=== PATIENT | male | born 1980 | race Caucasian/White ===

== ENCOUNTER 2016-03-28 16:36 | Inpatient (IN) | payer SELFPAY ==
[~2016-03-28] VITALS: Ht 177.8 cm; Wt 89.3 kg
[2016-03-28 16:38] VITALS: BP 164/71; PULSE 141; RESP 22; TEMP 98.8; TEMP 99.8; O2SAT 99
[2016-03-28] MEDS ORDERED: NALOXONE HCL 2 MG/2 ML VIAL IV PUSH ONE (16:45)
[2016-03-28] MEDS ORDERED: SODIUM CHLOR 0.9% 1000 ML INJ 1,000 ML IV ONE (17:00)
[2016-03-28] MEDS ORDERED: CLINDAMYCIN INJ 600 MG in SODIUM CHLORIDE 0.9% INJ 100 ML IV ONE (17:00)
[2016-03-28] MEDS ORDERED: IOHEXOL 350 MG/ML 10 ML VIAL (for RAD DIAG) IV ONE (17:34)
[2016-03-28 18:00] VITALS: BP 119/55; PULSE 82; RESP 16; O2SAT 99
--- NOTE | 2016-03-28 18:14 | RADRPT ---
EXAM DATE/TIME: 03/28/2016 17:17 [place] COMPARISON: No previous studies available for comparison. INDICATIONS : Left arm swelling and pain. IV CONTRAST: 66 cc Omnipaque 350 (iohexol) IV RADIATION DOSE: 11.61 CTDIvol (mGy) MEDICAL HISTORY : None SURGICAL HISTORY : None. ENCOUNTER: Initial ACUITY: 1 day PAIN SCALE: 5/10 LOCATION: Right arm TECHNIQUE: Volumetric scanning of the humerus was performed. Using automated exposure control and adjustment of the mA and/or kV according to patient size, radiation dose was kept as low as reasonably achievable to obtain optimal diagnostic quality images. FINDINGS: There is a loculated fluid collection along the inner aspect of the arm adjacent to the brachial becka ry. This demonstrates a mild rim enhancement and extends over a length of about 5.5 cm and transverse diameter of about 2 cm. Finding is characteristic of an abscess with surrounding cellulitis and skin thickening and edema. No associated bony abnormality. CONCLUSION: 1. Complex, mildly rim enhancing fluid collection along the inner aspect of the arm as above between the biceps and triceps muscles adjacent to the brachial artery most characteristic of an early absces s with surrounding cellulitis. No evidence for osteomyelitis. Ace Pozo MD on March 28, 2016 at 18:07 Board Certified Radiologist. This report was verified electronically.
[2016-03-28] MEDS ORDERED: Vancomycin Consult Pharmacy 1 EA OTHER SCH (18:45)
[2016-03-28] MEDS ORDERED: ACETAMINOPHEN 325 MG TAB PO PRN (18:45)
--- NOTE | 2016-03-28 18:52 | PD ---
HPI Chief Complaint: OD/ Ingestion Time Seen by Provider: 16:40 Travel History International Travel<30 days: No Contact w/Intl Traveler<30days: No Traveled to known affect area: No History of Present Illness HPI Patient was brought in as emergent rushed back from triage as unresponsive adult male with unknown identity. Patient was heroin overdose. I had seen this patient earlier this morning for right arm cellulitis/abscess. He left the ER AMA then because he did not want any further treatment and preferred to go to another emergency room. Patient was not breathing and was being bagged by the drain technician. Patient did have a pulse. [facility] Past Medical History Narrative Medical List of his past medical history as reviewed from the nursing note. Anxiety: Yes Depression: Yes Past Surgical History Surgical History: No Previous Surgery Social History Alcohol Use: Yes (OCCASIONAL) Tobacco Use: Yes (1/2 PPD) Substance Use: Yes (IV DRUG USE) Allergies-Medications (Allergen,Severity, Reaction): Coded Allergies: No Known Allergies (Unverified , 03/28/16) Comments No known drug allergies. Reported Meds & Prescriptions Reported Meds & Active Scripts Active No Active Prescriptions or Reported Medications Narrative Medication List of his home medications reviewed from the nursing note. Review of Systems Except as stated in HPI: all other systems reviewed are Neg Physical Exam Narrative GENERAL: Unresponsive, no spontaneous respirations, cyanotic SKIN: Warm and dry. Cyanotic HEAD: Atraumatic. Normocephalic. EYES: Pupils equal and round. No scleral icterus. No injection or drainage. ENT: No nasal bleeding or discharge. Mucous membranes pink and moist. NECK: Trachea midline. No JVD. CARDIOVASCULAR: Regular rate and rhythm. No murmur appreciated. RESPIRATORY: No spontaneous respirations. Patient is getting bagged by BVM GASTROINTESTINAL: Abdomen soft, non-tender, nondistended. Hepatic and splenic margins not palpable. MUSCULOSKELETAL: No obvious deformities. No clubbing. No cyanosis. No edema. NEUROLOGICAL: GCS of 3 PSYCHIATRIC: Unable to assess Data Data Last Documented VS Vital Signs Date Time Temp Pulse Resp B/P Pulse Ox O2 Delivery O2 Flow Rate FiO2 03/28/16 18:00 82 16 119/55 99 Room Air 03/28/16 16:38 99.8 Orders Naloxone Inj (Narcan Inj) (03/28/16 16:45) Clindamycin Inj (Cleocin Inj) (03/28/16 17:00) Lactic Acid (03/28/16 16:50) Blood Culture (03/28/16 16:50) Sodium Chlor 0.9% 1000 Ml Inj (Ns 1000 M (03/28/16 17:00) Ct Humerus W Iv Contrast (03/28/16 ) Iohexol 350 Inj (Omnipaque 350 Inj) (03/28/16 17:34) Admit Order (Ed Use Only) (03/28/16 18:39) Consult General Surgery (03/28/16 ) Diet Regular Basic (03/28/16 Dinner) Vital Signs (Adult) KIRK.Q4H (03/28/16 18:36) Complete Blood Count With Diff (03/29/16 06:00) Vancomycin Consult Pharmacy (Vancomycin (03/28/16 18:45) Labs Laboratory Tests Test 03/28/16 17:00 Lactic Acid Level 2.3 mmol/L MDM Medical Decision Making Medical Screen Exam Complete: Yes Emergency Medical Condition: Yes Medical Record Reviewed: Yes Differential Diagnosis Respiratory arrest, heroine overdose, sepsis Narrative Course 6:45 PM after I inserted the EJ 4 mg of IV Narcan was pushed. Patient immediately opened his eyes and started to breathe. He got agitated and started asking for his girlfriend. Since then he has remained very cooperative. His girlfriend is here next to him. I initially gave him IV clindamycin which he had not received during his last visit in the morning. He did get 1 Bactrim pill in the morning that was given in the emergency room. Since a CBC and BMP was already done I ordered lactic acid and blood culture. Lactic acid is elevated. His temperature upon arrival was 99.9. I've given him a liter of IV fluid bolus. I ordered a CT scan of his arm with IV contrast to get a better definition of the abscess. It is deep in the muscle bed adjacent to the brachial artery. I'm uncomfortable given the location and the depth to do an I&D. I spoke with from general surgery who will consult on the patient tomorrow. He wanted the patient to be admitted on IV antibiotics. I spoke with the hospitalist was accepted the case. Patient is comfortable with that plan and says he will stay. I've ordered IV vancomycin as well. Patient has history of MRSA. Patient happens to be very apologetic of his behavior earlier this morning. Critical Care Narrative Aggregate critical care time was 30 minutes. Time to perform other separately billable procedures was not included in the critical care time. My time did not include minutes spent treating any other patients simultaneously or on activities that did not directly contribute to the patient's treatment. The services I provided to this patient were to treat and/or prevent clinically significant deterioration that could result in: Respiratory arrest, heroin overdose, sepsis I provided critical care services requiring my management, as noted below: Chart data review, documentation time, medication orders and management, vital sign assessments/reviewing monitor data, ordering and reviewing lab tests, ordering and interpreting/reviewing x-rays and diagnostic studies, care of the patient and discussion of the patient with the admitting physicians. Procedures Procedure Narrative Left EJ line: Patient was a difficult IV access. He needed IV emergently to get Narcan. 20-gauge Angiocath was inserted and access was obtained within first attempt. 4 mg of Narcan was injected. Patient woke up immediately and tolerated the procedure well. EKG Prior to Arrival: No Physician Communication Physician Communication Dr. Patterson Diagnosis Primary Impression: Respiratory arrest Additional Impressions: Heroin overdose Qualified Code: T40.1X1A - Heroin overdose, accidental or unintentional, initial encounter Sepsis Qualified Code: A41.9 - Sepsis, due to unspecified organism Abscess Admitting Information Admitting Physician Requests: Admit Scripts No Active Prescriptions or Reported Meds Zamzam Dudley MD Mar 28, 2016 18:52
--- NOTE | 2016-03-28 19:07 | HHI.HP ---
HPI [facility] Primary Care Physician No Primary Care Physician Admission Diagnosis arm abscess, IV drug abuser Diagnoses: (1) Sepsis Diagnosis: Principal (2) Abscess Diagnosis: Principal (3) IVDU (intravenous drug user) Diagnosis: Principal (4) Heroin overdose Diagnosis: Principal (5) Tobacco abuse Diagnosis: Principal Travel History International Travel<30 Days: No Contact w/Intl Traveler <30 Da: No Traveled to Known Affected Are: No History of Present Illness Real Name: Jasbir Rios 78 ([id number]) This is a 35-year-old male w/ a PMH of IVDU, Bipolar Disorder, Depression and Tobacco Abuse who was brought to the ER as a Nelson Lawson following Heroin Overdose. Previously admitted earlier today for RUE Abscess, however he left AMA, returns now following Heroin OD, s/p Narcan 1mg upon arrival to ER. Currently awake, alert, oriented x4 and pleasant. Labs from previous visit w/ WBC 15.1, Chemistry essentially unremarkable. Currently, Lactic Acid 2.3. S/p Vanc/Clinda in ER. Dr. Patterson consulted by ER physician for eval of RUE Abscess, plan is to continue w/ IV Abx and monitor for possible surgical intervention. Review of Systems Other ROS: 14 point review of systems otherwise negative. Past Family Social History Past Medical History PMH: IVDU, Bipolar Disorder, Depression and Tobacco Abuse Past Surgical History PAST SURGICAL HISTORY: Right Forearm Abscess, Appendectomy Allergies: Coded Allergies: No Known Allergies (Unverified , 03/28/16) Family History PAST FAMILY HISTORY: Reviewed. No h/o DM or CAD Social History PAST SOCIAL HISTORY: Negative for alcohol. Smokes 1ppd. Positive for IVDU w/ Heroin, Xanax, Fentanyl Physical Exam Vital Signs Vital Signs Date Time Temp Pulse Resp B/P Pulse Ox O2 Delivery O2 Flow Rate FiO2 03/28/16 18:00 82 16 119/55 99 Room Air 03/28/16 16:38 99.8 141 22 164/71 99 Physical Exam PE: GENERAL: Pleasant middle-aged white male in no acute distress. HEENT: PERRLA, EOMI. No scleral icterus or conjunctival pallor. No lid lag or facial droop. CARDIOVASCULAR: Regular rate and rhythm. No obvious murmurs to auscultation. No chest tenderness to palpation. RESPIRATORY: No obvious rhonchi or wheezing. Clear to auscultation. Breath sounds equal bilaterally. GASTROINTESTINAL: Abdomen soft, non-tender, nondistended. BS normal. MUSCULOSKELETAL: RUE w/ erythema/edema and induration. Pulses intact bilaterally. NEUROLOGICAL: Awake, alert and oriented x4. No focal neurologic deficits. Moving both upper and lower extremities spontaneously. Laboratory Laboratory Tests Test 03/28/16 17:00 Lactic Acid Level 2.3 Date/Time Procedure Status Source Growth 03/28/16 17:00 Aerobic Blood Culture Received Blood Peripheral Pending 03/28/16 17:00 Anaerobic Blood Culture Received Blood Peripheral Pending Assessment and Plan Problem List: (1) Sepsis ICD Code: A41.9 Status: Acute (2) Abscess ICD Code: L02.91 Status: Acute (3) IVDU (intravenous drug user) ICD Code: F19.90 Status: Acute (4) Heroin overdose ICD Code: T40.1X1A Status: Acute (5) Tobacco abuse ICD Code: Z72.0 Status: Acute Assessment and Plan A/P: 1. Sepsis: WBC 15, Temp 99.8 rectal, HR 141, Source-RUE Abscess. Blood Cultures drawn on previous admit 03/28/16, will follow up cultures. S/p Vanc/ Clinda in ER. Continue w/ IV Abx. 2. Abscess: RUE Abscess, s/p eval by Dr. Patterson, plan is to continue w/ IV Abx and monitor for possible surgical intervention. 3. IVDU: h/o IVDU w/ Heroin, Xanax, Fentanyl. Brought to ER w/ Heroin OD, s/ p Narcan. Currently awake, alert, oriented x4. Ativan prn for withdrawal. 4. Heroin OD: As above, will monitor, Ativan prn. 5. Tobacco Abuse: Counselled. Ativan prn. 6. DVT Prophylaxis: SCD/Teds. 7. Social work for d/c planning as needed. 8. Case discussed w/ ER physician at length. Physician Certification 2 Midnight Certification Type: Admission for Inpatient Services Order for Inpatient Services The services are ordered in accordance with Medicare regulations or non- Medicare payer requirements, as applicable. In the case of services not specified as inpatient-only, they are appropriately provided as inpatient services in accordance with the 2-midnight benchmark. Estimated LOS (days): 2 days is the estimated time the patient will need to remain in the hospital, assuming treatment plan goals are met and no additional complications. Post-Hospital Plan: Not yet determined Problem Qualifiers (1) Sepsis: Qualified Code: A41.9 - Sepsis, due to unspecified organism (2) Heroin overdose: Qualified Code: T40.1X1A - Heroin overdose, accidental or unintentional, initial encounter Racheal Henderson MD Mar 28, 2016 19:07
[2016-03-28] MEDS ORDERED: BISACODYL 10 MG SUPP PR PRN (19:15)
[2016-03-28] MEDS ORDERED: ONDANSETRON HCL 4 MG/2 ML VIAL IVP PRN (19:15)
[2016-03-28] MEDS ORDERED: SODIUM CHLORIDE 0.9% FLUSH 5 ML FLUSH FLUSH PRN (19:15)
[2016-03-28] MEDS ORDERED: VANCOMYCIN 1,500 MG/NS 500 ML IV ONE ×2 (20:00)
--- NOTE | 2016-03-28 20:00 | PD.CAR.PN ---
CVT Progress Note Subjective/Hospital Course: Right arm abscess ID tomorrow in OR J Objective: Vital Signs Date Time Temp Pulse Resp B/P Pulse Ox O2 Delivery O2 Flow Rate FiO2 03/28/16 18:00 82 16 119/55 99 Room Air 03/28/16 16:38 99.8 141 22 164/71 99 Labs: Laboratory Tests Test 03/28/16 17:00 Lactic Acid Level 2.3 mmol/L (0.4-2.0) Gin Patterson MD Mar 28, 2016 20:00
[2016-03-28] MEDS: SODIUM CHLOR 0.9% 1000 ML INJ 1,000 ML IV SCH (20:08)
[2016-03-28] MEDS: SODIUM CHLORIDE 0.9% FLUSH 5 ML FLUSH FLUSH SCH (20:08)
[2016-03-28 20:11] VITALS: BP 115/61; PULSE 76; RESP 16; O2SAT 99
[2016-03-28] MEDS: ACETAMINOPHEN 325 MG TAB PO PRN (21:35)
[2016-03-28] MEDS: LORazepam 2 MG/ML VIAL IV PUSH PRN (21:36)
[2016-03-28 22:30] VITALS: BP 120/66; PULSE 68; RESP 16; TEMP 99; O2SAT 97
[2016-03-28] MEDS ORDERED: NALOXONE HCL 0.4 MG/ML AMP ONE (22:54)
--- NOTE | 2016-03-28 23:25 | HHI.PR ---
Addendum to Inpatient Note Addendum Reason: Additional Documentation Additional Information Patient was admitted tonight for IV drug dose. Fany Was called at 1045. Patient was found on the bathroom floor with a shoelace tying tied around his right arm and a needle on the floor. Patient was placed back in bed and was given 1 dose of Narcan. After 1 dose of Narcan patient woke up and stated he was feeling withdrawals and he had Dilaudid in his pants pocket soupy shot up the dose. Assess patient at bedside, he is A&O 3, and states he is very remorseful. Discussed plan with Dr. Henderson. Plan: at this time patient would benefit from a sitter, and neuro checks every 4 hours 4. Lucy Sanabria Mar 28, 2016 23:25
[2016-03-29] VITALS: BP 126/52; PULSE 76; RESP 18; TEMP 98.9; O2SAT 97
[2016-03-29] MEDS: LORazepam 2 MG/ML VIAL IV PUSH PRN ×3 (03:00→21:45)
[2016-03-29] MEDS: ACETAMINOPHEN 325 MG TAB PO PRN ×2 (03:00→11:18)
[2016-03-29 04:00] VITALS: BP 111/58; PULSE 67; RESP 18; TEMP 99.1; O2SAT 99
[2016-03-29] MEDS: SODIUM CHLOR 0.9% 1000 ML INJ 1,000 ML IV SCH (04:19)
[2016-03-29 05:11] LABS: AUTOMATED NEUTROPHIL # 9.2 TH/MM3 (1.8-7.7); BASOPHIL % 0.2 % (0.0-2.0); EOSINOPHIL # 0.3 TH/MM3 (0-0.4); EOSINOPHIL % 2.3 % (0.0-4.0); HEMATOCRIT 38.5 % (39.0-51.0); HEMO FLAGS DIFF FINAL; LYMPHOCYTE # 2.2 TH/MM3 (1.0-4.8); MEAN CELL VOLUME 88.1 FL (80.0-100.0); MEAN CORPUSCULAR HEMOGLOBIN 29.8 PG (27.0-34.0); MEAN CORPUSCULAR HGB CONC 33.8 % (32.0-36.0); NEUT % 70.5 % (16.0-70.0); PLATELET COUNT 167 TH/MM3 (150-450); RED BLOOD COUNT 4.37 MIL/MM3 (4.50-5.90); RED CELL DISTRIBUTION WIDTH 13.3 % (11.6-17.2)
[2016-03-29 05:34] LABS: ALT (GPT) 17 U/L (12-78); ANION GAP 6 MEQ/L (5-15); AST (GOT) 9 U/L (15-37); BICARBONATE 29.1 MEQ/L (21.0-32.0); BLOOD UREA NITROGEN 9 MG/DL (7-18); CHLORIDE 103 MEQ/L (98-107); GLOMERULAR FILTRATION RATE 74 ML/MIN (>89); POTASSIUM 3.9 MEQ/L (3.5-5.1); SODIUM (NA) 138 MEQ/L (136-145)
[2016-03-29 05:36] LABS: ALKALINE PHOSPHATASE 64 U/L (45-117); TOTAL BILIRUBIN ADULT 0.6 MG/DL (0.2-1.0)
--- NOTE | 2016-03-29 09:38 | HHI.PR ---
Subjective Remarks Follow up for right upper extremity infection. The patient complains of pain and swelling in his right upper extremity. He reports only injecting in his upper extremities, denies any other affected areas of possible infection or inflammation. He denies any fevers or chills. He states he plans to go to detox after DC. Patient is agreeable for I&D today. He understands he will be getting nonnarcotic pain control here. Takes no other medications at home. Works doing house framing. Objective Vitals Vital Signs Date Time Temp Pulse Resp B/P Pulse Ox O2 Delivery O2 Flow Rate FiO2 03/29/16 04:11 16 03/29/16 04:00 99.1 67 18 111/58 99 03/29/16 00:00 98.9 76 18 126/52 97 03/28/16 22:30 99.0 68 16 120/66 97 03/28/16 20:11 76 16 115/61 99 Room Air 03/28/16 18:00 82 16 119/55 99 Room Air 03/28/16 16:38 99.8 141 22 164/71 99 I/O 03/28/16 03/28/16 03/28/16 03/29/16 03/29/16 03/29/16 07:00 15:00 23:00 07:00 15:00 23:00 Intake Total 100 ml Balance 100 ml Intake Oral 100 ml Result Diagram: 03/29/16 0448 03/29/16 0448 Imaging Last Impressions Upper Extremity CT 03/28/16 0000 Signed Impressions: Service Date/Time: Monday, March 28, 2016 17:17 - CONCLUSION: 1. Complex, mildly rim enhancing fluid collection along the inner aspect of the arm as above between the biceps and triceps muscles adjacent to the brachial artery most characteristic of an early abscess with surrounding cellulitis. No evidence for osteomyelitis. Ace Pozo MD Objective Remarks GENERAL: Well-developed well-nourished. In no acute distress. SKIN: Warm and dry. Multiple track parker noted in the upper extremities. HEENT: Normocephalic. Pupils equal and round. Mucous membranes pink and moist. CARDIOVASCULAR: Regular rate and rhythm. No murmur appreciated. RESPIRATORY: No accessory muscle use. Clear to auscultation. Breath sounds equal bilaterally. GASTROINTESTINAL: Abdomen soft, non-tender, nondistended. Bowel sounds x4. MUSCULOSKELETAL: Right upper medial arm with erythema, warmth, induration. No clubbing or cyanosis. No edema. NEUROLOGICAL: Awake and alert. No focal neurological deficits. Moves upper and lower extremities spontaneously. Normal speech. PSYCHIATRIC: Appropriate mood and affect; insight and judgment normal. A/P Problem List: (1) Sepsis ICD Code: A41.9 Status: Acute (2) Abscess ICD Code: L02.91 Status: Acute (3) IVDU (intravenous drug user) ICD Code: F19.90 Status: Acute (4) Heroin overdose ICD Code: T40.1X1A Status: Acute (5) Tobacco abuse ICD Code: Z72.0 Status: Acute Assessment and Plan 35-year-old male w/ a PMH of IVDU, Bipolar Disorder, Depression and Tobacco Abuse who was brought to the ED as a Nelson Renny following Heroin Overdose Sepsis: WBC 15, Temp 99.8 rectal, HR 141, Source-RUE Abscess. Blood Cultures pending, follow-up. Continue IV vancomycin and cefepime. Abscess: RUE Abscess, s/p eval by Dr. Patterson, plan is for I&D in the OR today. IV Toradol for pain. IVDU: h/o IVDU w/ Heroin, Xanax, Fentanyl. Brought to ER w/ Heroin OD, s/p Narcan. Also with episode during admission of injecting Dilaudid, s/p Narcan with improvement. Ativan prn for withdrawal. Avoid narcotics. Heroin OD: As above, will monitor, Ativan prn. Tobacco Abuse: Counselled. Ativan prn. DVT Prophylaxis: SCD/Teds. Written by Michael Junior, acting as scribe for Dr. Duke on 03/29/16 at 09:38. The documentation accurately reflects the work performed [id number] by me on at 0938 Discharge Planning Disposition pending clinical course. Problem Qualifiers (1) Sepsis: Qualified Code: A41.9 - Sepsis, due to unspecified organism (2) Heroin overdose: Qualified Code: T40.1X1A - Heroin overdose, accidental or unintentional, initial encounter Michael Junior Mar 29, 2016 09:38 Cristian Duke MD Mar 29, 2016 13:55
[2016-03-29 09:45] VITALS: PULSE 66
[2016-03-29] MEDS: SODIUM CHLORIDE 0.9% FLUSH 5 ML FLUSH FLUSH SCH ×2 (10:11→20:59)
[2016-03-29] MEDS: CEFEPIME INJ 1,000 MG in SODIUM CHLORIDE 0.9% INJ 100 ML IV SCH ×2 (10:11→20:57)
[2016-03-29] MEDS: KETOROLAC TROMETHAMINE 30 MG/ML (IVP) VIAL IV PUSH PRN ×2 (10:11→16:44)
[2016-03-29] MEDS: VANCOMYCIN INJ 1,750 MG in SODIUM CHLORID 0.9% 500 ML INJ 500 ML IV SCH ×2 (11:13→23:01)
[2016-03-29 11:51] VITALS: BP 112/58; PULSE 67; RESP 18; TEMP 98; O2SAT 97
[2016-03-29] MEDS ORDERED: ONDANSETRON HCL 4 MG/2 ML VIAL IV PUSH ONE (12:00)
[2016-03-29] MEDS ORDERED: PROPOFOL 200 MG/20 ML AMP IV ONE (12:00)
[2016-03-29] MEDS ORDERED: DO NOT ADM ANY ANTICOAGULANT DRUGS XX PRN ×2 (13:29)
[2016-03-29] MEDS ORDERED: KETAMINE HCL 500 MG/5 ML VIAL ONE (13:36)
[2016-03-29] MEDS ORDERED: MIDAZOLAM HCL 2 MG/2 ML VIAL ONE (13:36)
[2016-03-29] MEDS ORDERED: fentaNYL CITRATE 250 MCG/5 ML AMP ONE (13:37)
[2016-03-29] MEDS ORDERED: *morphine SULFATE 8 MG/ML PERIprocedure ONLY ONE ×2 (14:38→15:45)
[2016-03-29 16:00] VITALS: BP 114/74; PULSE 74; RESP 20; TEMP 98.1; O2SAT 98
[2016-03-29] MEDS ORDERED: NALOXONE HCL 0.4 MG/ML AMP IV PRN (17:15)
[2016-03-29] MEDS: MORPHINE SULFATE 4 MG/ML INJ IV PRN (18:30)
[2016-03-29 20:00] VITALS: BP 134/82; PULSE 82; RESP 16; TEMP 98.9; O2SAT 99
[2016-03-29] MEDS ORDERED: METHADONE HCL 10 MG TAB PO ONE (21:45)
[2016-03-29] MEDS: KETOROLAC TROMETHAMINE 30 MG/ML (IVP) VIAL IVP PRN (23:02)
[2016-03-30] VITALS (9 sets, daily range): BP systolic 99–133; BP diastolic 56–69; PULSE 51–74; RESP 12–20; TEMP 97.2–100.4; O2SAT 95–100
[2016-03-30] MEDS: MORPHINE SULFATE 4 MG/ML INJ IV PRN ×4 (03:04→23:08)
[2016-03-30] MEDS: LORazepam 2 MG/ML VIAL IV PUSH PRN ×7 (03:13→23:07)
[2016-03-30] MEDS: KETOROLAC TROMETHAMINE 30 MG/ML (IVP) VIAL IVP PRN ×3 (06:54→20:13)
[2016-03-30 07:11] LABS: AUTOMATED NEUTROPHIL # 5.8 TH/MM3 (1.8-7.7); BASOPHIL % 0.4 % (0.0-2.0); EOSINOPHIL # 0.3 TH/MM3 (0-0.4); EOSINOPHIL % 3.3 % (0.0-4.0); HEMATOCRIT 38.5 % (39.0-51.0); HEMO FLAGS DIFF FINAL; LYMPH % 21.6 % (9.0-44.0); MEAN CELL VOLUME 88.5 FL (80.0-100.0); MEAN CORPUSCULAR HEMOGLOBIN 29.4 PG (27.0-34.0); MEAN CORPUSCULAR HGB CONC 33.2 % (32.0-36.0); MONO % 11.5 % (0.0-8.0); NEUT % 63.2 % (16.0-70.0); PLATELET COUNT 159 TH/MM3 (150-450); RED BLOOD COUNT 4.35 MIL/MM3 (4.50-5.90); RED CELL DISTRIBUTION WIDTH 13.3 % (11.6-17.2); WHITE BLOOD COUNT 9.2 TH/MM3 (4.0-11.0)
[2016-03-30 07:37] LABS: BICARBONATE 26.8 MEQ/L (21.0-32.0); MAGNESIUM 2.2 MG/DL (1.5-2.5); POTASSIUM 4.1 MEQ/L (3.5-5.1)
[2016-03-30] MEDS: CEFEPIME INJ 1,000 MG in SODIUM CHLORIDE 0.9% INJ 100 ML IV SCH ×2 (08:04→20:13)
[2016-03-30] MEDS: SODIUM CHLORIDE 0.9% FLUSH 5 ML FLUSH FLUSH SCH ×2 (08:05→20:13)
[2016-03-30] MEDS: VANCOMYCIN INJ 1,750 MG in SODIUM CHLORID 0.9% 500 ML INJ 500 ML IV SCH ×2 (10:11→23:07)
[2016-03-30] MEDS: SODIUM CHLOR 0.9% 1000 ML INJ 1,000 ML IV SCH ×2 (10:17→21:04)
--- NOTE | 2016-03-30 11:19 | HHI.PR ---
Subjective Remarks Follow-up for right upper extremity infection and narcotic abuse. Today the patient continues to complain of pain in his right arm surgical site. He states that he has chronic back pain secondary to bulging disc. He states that he used to follow with the methadone clinic, but is not currently following. He states that he does take methadone off the street about 40 or 50 mg a day. He understands that IV pain medication will only be given during a short course postoperatively. He understands the methadone will not be prescribed to him and he will have to reestablish with the methadone clinic after he is clean. Objective Vitals Vital Signs Date Time Temp Pulse Resp B/P Pulse Ox O2 Delivery O2 Flow Rate FiO2 03/30/16 08:20 98.2 55 20 129/67 95 03/30/16 04:28 98.3 64 12 114/69 96 03/30/16 00:27 100.4 74 16 128/56 100 03/29/16 20:00 98.9 82 16 134/82 99 03/29/16 18:35 18 03/29/16 16:00 98.1 74 20 114/74 98 03/29/16 15:50 97.9 65 15 124/62 100 Nasal Cannula 2 03/29/16 15:30 63 15 126/57 100 Nasal Cannula 2 03/29/16 15:00 61 15 132/62 100 Nasal Cannula 2 03/29/16 14:30 55 15 115/60 100 Nasal Cannula 2 03/29/16 14:15 52 15 116/63 100 Nasal Cannula 2 03/29/16 14:00 54 15 135/53 100 Nasal Cannula 2 03/29/16 13:45 55 15 121/64 98 Nasal Cannula 2 03/29/16 13:32 96.6 59 15 124/58 98 Nasal Cannula 2 03/29/16 11:51 98.0 67 18 112/58 97 I/O 03/29/16 03/29/16 03/29/16 03/30/16 03/30/16 03/30/16 06:59 14:59 22:59 06:59 14:59 22:59 Intake Total 300 ml 730 ml Output Total 20 ml 0 ml Balance 280 ml 730 ml Intake Oral 480 ml IV Total 250 ml Other 300 ml Output Urine Total 0 ml 0 ml Estimated Blood Loss 20 ml # Voids 2 Result Diagram: 03/30/16 0646 03/30/16 0646 Imaging Last Impressions Upper Extremity CT 03/28/16 0000 Signed Impressions: Service Date/Time: Monday, March 28, 2016 17:17 - CONCLUSION: 1. Complex, mildly rim enhancing fluid collection along the inner aspect of the arm as above between the biceps and triceps muscles adjacent to the brachial artery most characteristic of an early abscess with surrounding cellulitis. No evidence for osteomyelitis. Ace Pozo MD Objective Remarks GENERAL: Well-developed well-nourished. In no acute distress. SKIN: Warm and dry. Multiple track parker noted in the upper extremities. HEENT: Normocephalic. Pupils equal and round. Mucous membranes pink and moist. CARDIOVASCULAR: Regular rate and rhythm. No murmur appreciated. RESPIRATORY: No accessory muscle use. Clear to auscultation. Breath sounds equal bilaterally. GASTROINTESTINAL: Abdomen soft, non-tender, nondistended. Bowel sounds x4. MUSCULOSKELETAL: Right upper medial arm in a surgical dressing, CDI. No clubbing or cyanosis. No edema. NEUROLOGICAL: Awake and alert. No focal neurological deficits. Moves upper and lower extremities spontaneously. Normal speech. PSYCHIATRIC: Appropriate mood and affect; insight and judgment normal. A/P Problem List: (1) Sepsis ICD Code: A41.9 Status: Acute (2) Abscess ICD Code: L02.91 Status: Acute (3) IVDU (intravenous drug user) ICD Code: F19.90 Status: Acute (4) Heroin overdose ICD Code: T40.1X1A Status: Acute (5) Tobacco abuse ICD Code: Z72.0 Status: Acute Assessment and Plan 35-year-old male w/ a PMH of IVDU, Bipolar Disorder, Depression and Tobacco Abuse who was brought to the ED as a Nelson Lawson following Heroin Overdose Sepsis: WBC 15, Temp 99.8 rectal, HR 141, Source-RUE Abscess. Blood Cultures with NGTD. Continue IV vancomycin and cefepime. RUE Abscess: Upper summary CT showed complex fluid collection along the inner aspect of the arm between the biceps and triceps muscles adjacent to the brachial artery. Gen./vascular surgery, Dr. Patterson consulted, performed I&D in the OR 03/29. IV Toradol as needed for pain with IV morphine for breakthrough. Wound care recommendations per surgery. IVDU: h/o IVDU w/ Heroin, Xanax, Fentanyl. Brought to ER w/ Heroin OD, s/p Narcan. Also with episode during admission of injecting Dilaudid, s/p Narcan with improvement. Narcan as needed. Ativan prn for withdrawal. Caution with narcotics. Start methadone 30 mg daily for now while admitted. Heroin OD: As above, will monitor, Ativan prn. Sitter. Tobacco Abuse: Counselled. Ativan prn. DVT Prophylaxis: SCD/Teds. Written by Michael Junior, acting as scribe for Dr. Duke on 03/30/16 at 11:18. The documentation accurately reflects the work performed [id number] by me on at 1118 Discharge Planning Disposition pending clinical course. Problem Qualifiers (1) Sepsis: Qualified Code: A41.9 - Sepsis, due to unspecified organism (2) Heroin overdose: Qualified Code: T40.1X1A - Heroin overdose, accidental or unintentional, initial encounter Michael Junior Mar 30, 2016 11:19 Cristian Duke MD Mar 30, 2016 15:32
[2016-03-30] MEDS: METHADONE HCL 10 MG TAB PO SCH (11:55)
--- NOTE | 2016-03-30 14:47 | PD.CAR.PN ---
CVT Progress Note Subjective/Hospital Course: Right arm abscess ID tomorrow in OR J 03/30/16 Dressing is removed and the aching is extracted This is a deep abscess but tissue appears to be viable and clean without any odor and no more drainage There is of course swelling of the proximal and distal arm because this is a significant infection and deep seeded for a while prior to drainage However patient does not have compartment syndrome by any stretch of imagination. Patient has palpable brachial radial and ulnar pulses Patient has no neurologic deficit and motoric ant fully intact making fist stretching fingers normally At this point orders have been given how to repack the wound lightly and wash it with saline. Once the antibiotic therapy is completed patient can be discharged from my point or he can continue antibiotics at home Eventually this is going to heal by second intention Objective: Vital Signs Date Time Temp Pulse Resp B/P Pulse Ox O2 Delivery O2 Flow Rate FiO2 03/30/16 13:30 18 03/30/16 12:27 16 03/30/16 12:03 98.2 63 16 133/66 100 03/30/16 12:02 51 03/30/16 09:25 99 21 03/30/16 08:20 98.2 55 20 129/67 95 03/30/16 04:28 98.3 64 12 114/69 96 03/30/16 00:27 100.4 74 16 128/56 100 03/29/16 20:00 98.9 82 16 134/82 99 03/29/16 18:35 18 03/29/16 16:00 98.1 74 20 114/74 98 03/29/16 15:50 97.9 65 15 124/62 100 Nasal Cannula 2 03/29/16 15:30 63 15 126/57 100 Nasal Cannula 2 03/29/16 15:00 61 15 132/62 100 Nasal Cannula 2 Labs: Laboratory Tests Test 03/30/16 06:46 White Blood Count 9.2 TH/MM3 (4.0-11.0) Red Blood Count 4.35 MIL/MM3 (4.50-5.90) Hemoglobin 12.8 GM/DL (13.0-17.0) Hematocrit 38.5 % (39.0-51.0) Mean Corpuscular Volume 88.5 FL (80.0-100.0) Mean Corpuscular Hemoglobin 29.4 PG (27.0-34.0) Mean Corpuscular Hemoglobin 33.2 % Concent (32.0-36.0) Red Cell Distribution Width 13.3 % (11.6-17.2) Platelet Count 159 TH/MM3 (150-450) Mean Platelet Volume 8.8 FL (7.0-11.0) Neutrophils (%) (Auto) 63.2 % (16.0-70.0) Lymphocytes (%) (Auto) 21.6 % (9.0-44.0) Monocytes (%) (Auto) 11.5 % (0.0-8.0) Eosinophils (%) (Auto) 3.3 % (0.0-4.0) Basophils (%) (Auto) 0.4 % (0.0-2.0) Neutrophils # (Auto) 5.8 TH/MM3 (1.8-7.7) Lymphocytes # (Auto) 2.0 TH/MM3 (1.0-4.8) Monocytes # (Auto) 1.1 TH/MM3 (0-0.9) Eosinophils # (Auto) 0.3 TH/MM3 (0-0.4) Basophils # (Auto) 0.0 TH/MM3 (0-0.2) CBC Comment DIFF FINAL Differential Comment Sodium Level 140 MEQ/L (136-145) Potassium Level 4.1 MEQ/L (3.5-5.1) Chloride Level 106 MEQ/L (98-107) Carbon Dioxide Level 26.8 MEQ/L (21.0-32.0) Anion Gap 7 MEQ/L (5-15) Blood Urea Nitrogen 8 MG/DL (7-18) Creatinine 0.76 MG/DL (0.60-1.30) Estimat Glomerular Filtration 116 ML/MIN Rate (>89) Random Glucose 90 MG/DL (74-106) Calcium Level 8.3 MG/DL (8.5-10.1) Magnesium Level 2.2 MG/DL (1.5-2.5) Result Diagram: 03/30/16 0646 03/30/16 0646 Gin Patterson MD Mar 30, 2016 14:47
[2016-03-31] VITALS (8 sets, daily range): BP systolic 112–134; BP diastolic 61–73; PULSE 44–60; RESP 16–19; TEMP 96.7–97.5; O2SAT 95–98
[2016-03-31] MEDS: KETOROLAC TROMETHAMINE 30 MG/ML (IVP) VIAL IVP PRN ×4 (05:11→23:16)
[2016-03-31] MEDS: LORazepam 2 MG/ML VIAL IV PUSH PRN ×2 (05:14→12:44)
[2016-03-31] MEDS: SODIUM CHLOR 0.9% 1000 ML INJ 1,000 ML IV SCH (07:04)
[2016-03-31] MEDS: SODIUM CHLORIDE 0.9% FLUSH 5 ML FLUSH FLUSH SCH (08:15)
[2016-03-31] MEDS: CEFEPIME INJ 1,000 MG in SODIUM CHLORIDE 0.9% INJ 100 ML IV SCH ×2 (08:16→22:33)
[2016-03-31] MEDS: METHADONE HCL 10 MG TAB PO SCH (08:16)
[2016-03-31] MEDS ORDERED: PHARMACY ORDERED LAB XX ONE (10:45)
[2016-03-31] MEDS: VANCOMYCIN INJ 1,750 MG in SODIUM CHLORID 0.9% 500 ML INJ 500 ML IV SCH ×2 (10:52→22:35)
[2016-03-31] MEDS: ACETAMINOPHEN 325 MG TAB PO PRN (12:08)
[2016-03-31] MEDS: MORPHINE SULFATE 4 MG/ML INJ IV PRN ×2 (12:45→15:55)
--- NOTE | 2016-03-31 13:05 | HHI.PR ---
Subjective Remarks Follow-up for right upper extremity infection and narcotic abuse. The patient complains of throbbing pain in his right upper extremity. He reports poor sleep secondary to pain. He was noted to be bradycardic today. He denies any associated chest pain, dizziness, lightheadedness. He understands no narcotic medications will be prescribed him at discharge. Objective Vitals Vital Signs Date Time Temp Pulse Resp B/P Pulse Ox O2 Delivery O2 Flow Rate FiO2 03/31/16 07:25 97.5 50 18 112/71 98 03/31/16 06:42 97.4 51 16 134/67 95 03/31/16 01:43 97.3 60 18 119/61 96 03/30/16 21:51 97.2 66 18 128/66 98 03/30/16 17:22 14 03/30/16 16:54 57 114/61 03/30/16 15:47 98.2 58 18 99/ 99 03/30/16 13:30 18 I/O 03/30/16 03/30/16 03/30/16 03/31/16 03/31/16 03/31/16 07:00 15:00 23:00 07:00 15:00 23:00 Intake Total 480 ml 480 ml Balance 480 ml 480 ml Intake Oral 480 ml 480 ml # Voids 1 1 Result Diagram: 03/30/16 0646 03/30/16 0646 Imaging Last Impressions Upper Extremity CT 03/28/16 0000 Signed Impressions: Service Date/Time: Monday, March 28, 2016 17:17 - CONCLUSION: 1. Complex, mildly rim enhancing fluid collection along the inner aspect of the arm as above between the biceps and triceps muscles adjacent to the brachial artery most characteristic of an early abscess with surrounding cellulitis. No evidence for osteomyelitis. Ace Pozo MD Objective Remarks GENERAL: Well-developed well-nourished. In no acute distress. SKIN: Warm and dry. Multiple track parker noted in the upper extremities. HEENT: Normocephalic. Pupils equal and round. Mucous membranes pink and moist. CARDIOVASCULAR: Regular rate and rhythm. No murmur appreciated. RESPIRATORY: No accessory muscle use. Clear to auscultation. Breath sounds equal bilaterally. GASTROINTESTINAL: Abdomen soft, non-tender, nondistended. Bowel sounds x4. MUSCULOSKELETAL: Right upper medial arm with ~7-8cm surgical incision, serosanguineous fluid collected on dressing, no drainage or erythema noted. No clubbing or cyanosis. No edema. NEUROLOGICAL: Awake and alert. No focal neurological deficits. Moves upper and lower extremities spontaneously. Normal speech. PSYCHIATRIC: Appropriate mood and affect; insight and judgment normal. Procedures I and D arm abscess A/P Problem List: (1) Sepsis ICD Code: A41.9 Status: Acute (2) Abscess ICD Code: L02.91 Status: Acute (3) IVDU (intravenous drug user) ICD Code: F19.90 Status: Acute (4) Heroin overdose ICD Code: T40.1X1A Status: Acute (5) Tobacco abuse ICD Code: Z72.0 Status: Acute Assessment and Plan 35-year-old male w/ a PMH of IVDU, Bipolar Disorder, Depression and Tobacco Abuse who was brought to the ED as a Nelson Renny following Heroin Overdose Sepsis: WBC 15, Temp 99.8 rectal, HR 141, Source-RUE Abscess. Blood Cultures with NGTD. Continue IV vancomycin and cefepime. RUE Abscess: Upper summary CT showed complex fluid collection along the inner aspect of the arm between the biceps and triceps muscles adjacent to the brachial artery. Gen./vascular surgery, Dr. Patterson consulted, performed I&D in the OR 03/29. IV Toradol and add oxycodone as needed for pain, IV morphine for breakthrough. Wound care recommendations per surgery. IVDU: h/o IVDU w/ Heroin, Xanax, Fentanyl. Brought to ER w/ Heroin OD, s/p Narcan. Also with episode during admission of injecting Dilaudid, s/p Narcan with improvement. Narcan as needed. Ativan prn for withdrawal. Caution with narcotics. Started methadone 30 mg daily for now while admitted, pain not controlled, D/W pharmacy, increase to 20mg BID. Will need to follow up with methadone clinic. Heroin OD: As above, will monitor, Ativan prn. Sitter. Bradycardia: Likely secondary to methadone as above. Monitor on telemetry. Caution with pain control. Asymptomatic. EKG Tobacco Abuse: Counselled. Ativan prn. DVT Prophylaxis: SCD/Teds. GI Prophylaxis: Protonix Written by Michael Junior, acting as scribe for Dr. Duke on 03/31/16 at 13:04. The documentation accurately reflects the work performed [id number] by me on at 1304 Discharge Planning Disposition pending clinical course. The patient is known to assist him with dressing changes at home, consult case management to assist with outpatient wound care Problem Qualifiers (1) Sepsis: Qualified Code: A41.9 - Sepsis, due to unspecified organism (2) Heroin overdose: Qualified Code: T40.1X1A - Heroin overdose, accidental or unintentional, initial encounter Michael Junior Mar 31, 2016 13:05 Cristian Duke MD Mar 31, 2016 16:39
[2016-03-31] MEDS ORDERED: MORPHINE SULFATE 4 MG/ML INJ IV PUSH PRN (13:15)
[2016-03-31] MEDS ORDERED: MORPHINE SULFATE 4 MG/ML INJ IV PRN (14:15)
[2016-03-31] MEDS: PANTOPRAZOLE SOD 20 MG DELAYED RELEASE TAB PO SCH (15:52)
--- NOTE | 2016-03-31 17:25 | PD.CAR.PN ---
CVT Progress Note Subjective/Hospital Course: Right arm abscess ID tomorrow in OR J 03/30/16 Dressing is removed and the aching is extracted This is a deep abscess but tissue appears to be viable and clean without any odor and no more drainage There is of course swelling of the proximal and distal arm because this is a significant infection and deep seeded for a while prior to drainage However patient does not have compartment syndrome by any stretch of imagination. Patient has palpable brachial radial and ulnar pulses Patient has no neurologic deficit and motoric ant fully intact making fist stretching fingers normally At this point orders have been given how to repack the wound lightly and wash it with saline. Once the antibiotic therapy is completed patient can be discharged from my point or he can continue antibiotics at home Eventually this is going to heal by second intention 03/31/16 Wound is nice and clean no purulent drainage muscle seems to be nice and viable and redness has decreased Swelling is significantly decreased and patient has normal neurologic and motoric function of the right arm Patient can do discharged any time from my point as long as the wound is washed and lightly packed daily Either patient has to learn how to do this himself or somebody has to do it for him Nothing to add to care for further Objective: Vital Signs Date Time Temp Pulse Resp B/P Pulse Ox O2 Delivery O2 Flow Rate FiO2 03/31/16 15:45 97.0 59 18 128/68 97 03/31/16 15:12 44 03/31/16 11:20 97.1 50 18 124/73 97 03/31/16 07:25 97.5 50 18 112/71 98 03/31/16 06:42 97.4 51 16 134/67 95 03/31/16 01:43 97.3 60 18 119/61 96 03/30/16 21:51 97.2 66 18 128/66 98 Labs: Laboratory Tests Test 03/31/16 11:00 Vancomycin Level Trough 9.1 MCG/ML (5.0-10.0) Result Diagram: 03/30/16 0646 03/30/16 0646 Gin Patterson MD Mar 31, 2016 17:25
[2016-04-01] VITALS (7 sets, daily range): BP systolic 116–130; BP diastolic 71–82; PULSE 47–68; RESP 16–20; TEMP 96.8–97.9; O2SAT 96–98
[2016-04-01] MEDS: MORPHINE SULFATE 4 MG/ML INJ IV PRN ×4 (02:52→20:23)
[2016-04-01] MEDS: KETOROLAC TROMETHAMINE 30 MG/ML (IVP) VIAL IVP PRN ×2 (05:09→23:20)
[2016-04-01] MEDS: CEFEPIME INJ 1,000 MG in SODIUM CHLORIDE 0.9% INJ 100 ML IV SCH (09:14)
[2016-04-01] MEDS: SODIUM CHLORIDE 0.9% FLUSH 5 ML FLUSH FLUSH SCH ×2 (09:14→21:00)
[2016-04-01] MEDS: PANTOPRAZOLE SOD 20 MG DELAYED RELEASE TAB PO SCH (09:14)
[2016-04-01] MEDS: METHADONE HCL 10 MG TAB PO SCH ×2 (09:21→20:20)
--- NOTE | 2016-04-01 10:39 | PD.CAR.PN ---
CVT Progress Note Subjective/Hospital Course: Right arm abscess ID tomorrow in OR J 03/30/16 Dressing is removed and the aching is extracted This is a deep abscess but tissue appears to be viable and clean without any odor and no more drainage There is of course swelling of the proximal and distal arm because this is a significant infection and deep seeded for a while prior to drainage However patient does not have compartment syndrome by any stretch of imagination. Patient has palpable brachial radial and ulnar pulses Patient has no neurologic deficit and motoric ant fully intact making fist stretching fingers normally At this point orders have been given how to repack the wound lightly and wash it with saline. Once the antibiotic therapy is completed patient can be discharged from my point or he can continue antibiotics at home Eventually this is going to heal by second intention 03/31/16 Wound is nice and clean no purulent drainage muscle seems to be nice and viable and redness has decreased Swelling is significantly decreased and patient has normal neurologic and motoric function of the right arm Patient can do discharged any time from [facility] as long as the wound is washed and lightly packed daily Either patient has to learn how to do this himself or somebody has to do it for him Nothing to add to care 04/01/16 Swelling is completely gone from the left forearm Incision is clean Dressing should be changed as instructed with light packing Patient to shower daily and get incision wet with soap and water, then packed lightly with wet-to-dry gauze Will sign off at this time Follow-up with me in about 3 weeks in the office Objective: Vital Signs Date Time Temp Pulse Resp B/P Pulse Ox O2 Delivery O2 Flow Rate FiO2 04/01/16 09:18 18 04/01/16 08:00 97.1 64 20 130/82 97 04/01/16 05:13 97.0 48 18 116/71 96 04/01/16 00:08 96.8 55 19 119/72 96 03/31/16 20:13 96.7 54 19 128/70 97 03/31/16 18:00 56 03/31/16 15:45 97.0 59 18 128/68 97 03/31/16 15:12 44 03/31/16 11:20 97.1 50 18 124/73 97 Labs: Laboratory Tests Test 04/01/16 08:00 Creatinine 0.82 MG/DL (0.60-1.30) Estimat Glomerular Filtration 106 ML/MIN Rate (>89) Result Diagram: 03/30/16 0646 04/01/16 0800 Gin Patterson MD Apr 01, 2016 10:39
[2016-04-01] MEDS: VANCOMYCIN INJ 1,750 MG in SODIUM CHLORID 0.9% 500 ML INJ 500 ML IV SCH (10:55)
--- NOTE | 2016-04-01 11:25 | HHI.PR ---
Subjective Remarks Follow-up arm abscess. Still with pain. Noted increased swelling right forearm. No available help with dressing changes outpatient. Patient agrees to DC morphine for breakthrough pain in the morning. States he always has slow heart rate because he is a runner. Discussed with RN and case management Objective Vitals Vital Signs Date Time Temp Pulse Resp B/P Pulse Ox O2 Delivery O2 Flow Rate FiO2 04/01/16 11:07 18 04/01/16 09:18 18 04/01/16 08:00 97.1 64 20 130/82 97 04/01/16 05:13 97.0 48 18 116/71 96 04/01/16 00:08 96.8 55 19 119/72 96 03/31/16 20:13 96.7 54 19 128/70 97 03/31/16 18:00 56 03/31/16 15:45 97.0 59 18 128/68 97 03/31/16 15:12 44 I/O 03/31/16 03/31/16 03/31/16 04/01/16 04/01/16 04/01/16 07:00 15:00 23:00 07:00 15:00 23:00 Intake Total 360 ml Balance 360 ml Intake Oral 360 ml # Voids 1 1 2 Result Diagram: 03/30/16 0646 04/01/16 0800 Procedures I and D arm abscess A/P Problem List: (1) Sepsis ICD Code: A41.9 Status: Acute (2) Abscess ICD Code: L02.91 Status: Acute (3) IVDU (intravenous drug user) ICD Code: F19.90 Status: Acute (4) Heroin overdose ICD Code: T40.1X1A Status: Acute (5) Tobacco abuse ICD Code: Z72.0 Status: Acute Assessment and Plan 35-year-old male w/ a PMH of IVDU, Bipolar Disorder, Depression and Tobacco Abuse who was brought to the ED as a Nelson Lawson following Heroin Overdose Sepsis: WBC 15, Temp 99.8 rectal, HR 141, Source-RUE Abscess. Blood Cultures with NGTD. Continue IV vancomycin and cefepime. RUE Abscess: Upper summary CT showed complex fluid collection along the inner aspect of the arm between the biceps and triceps muscles adjacent to the brachial artery. Gen./vascular surgery, Dr. Patterson consulted, performed I&D in the OR 03/29. IV Toradol and add oxycodone as needed for pain, IV morphine for breakthrough. Wound care recommendations per surgery. IVDU: h/o IVDU w/ Heroin, Xanax, Fentanyl. Brought to ER w/ Heroin OD, s/p Narcan. Also with episode during admission of injecting Dilaudid, s/p Narcan with improvement. Narcan as needed. Ativan prn for withdrawal. Caution with narcotics. Started methadone 30 mg daily for now while admitted, pain not controlled, D/W pharmacy, increase to 20mg BID. Will need to follow up with methadone clinic. Heroin OD: As above, will monitor, Ativan prn. Sitter. Bradycardia: Likely secondary to methadone as above. Monitor on telemetry. Caution with pain control. Asymptomatic. EKG Tobacco Abuse: Counselled. Ativan prn. DVT Prophylaxis: SCD/Teds. GI Prophylaxis: Protonix Written by Michael Junior, acting as scribe for Dr. Duke on 03/31/16 at 13:04. The documentation accurately reflects the work performed [id number] by me on at 1304 Problem Qualifiers (1) Sepsis: Qualified Code: A41.9 - Sepsis, due to unspecified organism (2) Heroin overdose: Qualified Code: T40.1X1A - Heroin overdose, accidental or unintentional, initial encounter Cristian Duke MD Apr 01, 2016 11:25 am
--- NOTE | 2016-04-01 11:46 | HHI.DCPOC ---
Discharge Care Plan Diagnosis: (1) Sepsis (2) Heroin overdose Your Health Problems Are: Difficulty with ADL Exercise Tolerance Chronic Pain Goals to Promote Your Health * To prevent worsening of your condition and complications * To maintain your health at the optimal level Directions to Meet Your Goals Take your medications as prescribed Follow your dietary instruction Follow activity as directed Keep your appointments as scheduled Take your immunizations and boosters as scheduled If your symptoms worsen call your PCP, if no PCP go to Urgent Care Center or Emergency Room Smoking is Dangerous to Your Health. Avoid second hand smoke Call the 24-hour hour crisis hotline for domestic abuse at Cristian Duke MD Apr 01, 2016 11:46 am
[2016-04-01] MEDS ORDERED: IBUP800T23 PO (11:47)
[2016-04-01] MEDS: LORazepam 2 MG/ML VIAL IV PUSH PRN ×2 (16:14→20:20)
--- NOTE | 2016-04-01 16:41 | EKG ---
Date Performed: 03/31/2016 Time Performed: 18:35:36 PTAGE: 35 years EKG: SINUS BRADYCARDIA BORDERLINE ECG NO PREVIOUS TRACING DOCTOR: Kisha Duncan Interpretating Date/Time 04/01/2016 16:35:59
[2016-04-01] MEDS: SULFAMETHOXAZOLE-TRIMETHOPRIM DS 800-160 MG TAB PO SCH (20:32)
[2016-04-01] MEDS: CIPROFLOXACIN 500 MG TAB PO SCH (20:33)
[2016-04-01] MEDS ORDERED: PHARMACY ORDERED LAB XX ONE (22:45)
[2016-04-02 04:00] VITALS: BP 112/64; PULSE 54; RESP 17; TEMP 97.1; O2SAT 97
[2016-04-02] MEDS: MORPHINE SULFATE 4 MG/ML INJ IV PRN ×2 (05:26→07:53)
[2016-04-02] MEDS: SULFAMETHOXAZOLE-TRIMETHOPRIM DS 800-160 MG TAB PO SCH ×2 (07:51→21:08)
[2016-04-02] MEDS: METHADONE HCL 10 MG TAB PO SCH ×3 (07:52→21:11)
[2016-04-02] MEDS: PANTOPRAZOLE SOD 20 MG DELAYED RELEASE TAB PO SCH (07:52)
[2016-04-02] MEDS: CIPROFLOXACIN 500 MG TAB PO SCH ×3 (07:52→21:11)
[2016-04-02] MEDS: LORazepam 2 MG/ML VIAL IV PUSH PRN ×2 (07:55→14:24)
[2016-04-02] MEDS: SODIUM CHLORIDE 0.9% FLUSH 5 ML FLUSH FLUSH SCH ×3 (07:55→21:12)
[2016-04-02 08:15] VITALS: BP 124/73; PULSE 48; RESP 18; TEMP 96.8; O2SAT 98
--- NOTE | 2016-04-02 11:23 | HHI.PR ---
Subjective Remarks Follow-up right arm abscess. States his girlfriend will be able to help him with dressing. She will come later today to be trained. Plan for discharge in the morning. Swelling much improved Objective Vitals Vital Signs Date Time Temp Pulse Resp B/P Pulse Ox O2 Delivery O2 Flow Rate FiO2 04/02/16 08:32 18 04/02/16 08:32 18 04/02/16 08:15 96.8 48 18 124/73 98 04/02/16 04:00 97.1 54 17 112/64 97 04/01/16 20:00 97.9 58 17 130/79 98 04/01/16 18:00 52 04/01/16 17:19 18 04/01/16 16:17 96.8 68 16 124/77 98 04/01/16 12:00 97.1 47 20 123/74 97 I/O 04/01/16 04/01/16 04/01/16 04/02/16 04/02/16 04/02/16 07:00 15:00 23:00 07:00 15:00 23:00 Intake Total 360 ml 600 ml Output Total 300 ml Balance 360 ml 600 ml -300 ml Intake Oral 360 ml 600 ml Output Urine Total 300 ml # Voids 2 2 2 Result Diagram: 03/30/16 0646 04/01/16 0800 Objective Remarks GENERAL: Well-developed well-nourished. In no acute distress. SKIN: Warm and dry. Multiple track parker noted in the upper extremities. HEENT: Normocephalic. Pupils equal and round. Mucous membranes pink and moist. CARDIOVASCULAR: Regular rate and rhythm. No murmur appreciated. RESPIRATORY: No accessory muscle use. Clear to auscultation. Breath sounds equal bilaterally. GASTROINTESTINAL: Abdomen soft, non-tender, nondistended. Bowel sounds x4. MUSCULOSKELETAL: Right upper medial arm with ~7-8cm surgical incision, serosanguineous fluid collected on dressing, no drainage or erythema noted. No clubbing or cyanosis. Improved swelling. NEUROLOGICAL: Awake and alert. No focal neurological deficits. Moves upper and lower extremities spontaneously. Normal speech. PSYCHIATRIC: Appropriate mood and affect; insight and judgment normal. Procedures I and D arm abscess A/P Problem List: (1) Sepsis ICD Code: A41.9 Status: Acute (2) Abscess ICD Code: L02.91 Status: Acute (3) IVDU (intravenous drug user) ICD Code: F19.90 Status: Acute (4) Heroin overdose ICD Code: T40.1X1A Status: Acute (5) Tobacco abuse ICD Code: Z72.0 Status: Acute Assessment and Plan 35-year-old male w/ a PMH of IVDU, Bipolar Disorder, Depression and Tobacco Abuse who was brought to the ED as a Nelson Renny following Heroin Overdose Sepsis: WBC 15, Temp 99.8 rectal, HR 141, Source-RUE Abscess. Blood Cultures with NGTD. Ct Bactrim and cipro dc IV vancomycin and cefepime. RUE Abscess: Upper summary CT showed complex fluid collection along the inner aspect of the arm between the biceps and triceps muscles adjacent to the brachial artery. Gen./vascular surgery, Dr. Patterson consulted, performed I&D in the OR 03/29. IV Toradol and add oxycodone as needed for pain, IV morphine prior to dressing. Wound care recommendations per surgery. IVDU: h/o IVDU w/ Heroin, Xanax, Fentanyl. Brought to ER w/ Heroin OD, s/p Narcan. Also with episode during admission of injecting Dilaudid, s/p Narcan with improvement. Narcan as needed. Ativan prn for withdrawal. Caution with narcotics. Started methadone 30 mg daily for now while admitted, pain not controlled, D/W pharmacy, increased to 20mg BID. Will need to follow up with methadone clinic. Heroin OD: As above, will monitor, Ativan prn. Sitter. Bradycardia hx: Likely contributed by methadone. Monitor on telemetry. Caution with pain control. Asymptomatic. EKG Tobacco Abuse: Counselled. Ativan prn. DVT Prophylaxis: SCD/Teds. GI Prophylaxis: Protonix Discharge Planning Dc in am Problem Qualifiers (1) Sepsis: Qualified Code: A41.9 - Sepsis, due to unspecified organism (2) Heroin overdose: Qualified Code: T40.1X1A - Heroin overdose, accidental or unintentional, initial encounter Cristian Duke MD Apr 02, 2016 11:23
[2016-04-02] MEDS: KETOROLAC TROMETHAMINE 30 MG/ML (IVP) VIAL IVP PRN (14:24)
[2016-04-02] MEDS ORDERED: BACT800T5 PO (15:47)
[2016-04-02] MEDS ORDERED: CIPR-9 PO (15:47)
[2016-04-02 16:00] VITALS: BP 126/62; PULSE 52; RESP 20; TEMP 97.5; O2SAT 96
[2016-04-02] MEDS: MORPHINE SULFATE 4 MG/ML INJ IV PUSH PRN (18:03)
[2016-04-02 20:00] VITALS: BP 146/63; PULSE 55; RESP 18; TEMP 97.5; O2SAT 96
[2016-04-02 22:00] VITALS: PULSE 60
[2016-04-03] VITALS: BP 137/60; PULSE 58; RESP 18; TEMP 97.7; O2SAT 97
[2016-04-03] MEDS: KETOROLAC TROMETHAMINE 30 MG/ML (IVP) VIAL IVP PRN ×2 (01:03→09:18)
[2016-04-03 04:00] VITALS: BP 113/56; PULSE 52; RESP 18; TEMP 97.3; O2SAT 94
[2016-04-03 09:14] VITALS: BP 115/68; PULSE 48; RESP 18; TEMP 96.8; O2SAT 94
[2016-04-03] MEDS: PANTOPRAZOLE SOD 20 MG DELAYED RELEASE TAB PO SCH (09:15)
[2016-04-03] MEDS: SULFAMETHOXAZOLE-TRIMETHOPRIM DS 800-160 MG TAB PO SCH (09:15)
[2016-04-03] MEDS: METHADONE HCL 10 MG TAB PO SCH (09:15)
--- NOTE | 2016-04-03 11:38 | HHI.PR ---
Subjective Remarks F/u arm abscess. Improved right arm pain and swelling. Did not require IV narcotics for breakthrough pain. States he will attend drug rehabilitation program after wound healing. Discussed with RN Objective Vitals Vital Signs Date Time Temp Pulse Resp B/P Pulse Ox O2 Delivery O2 Flow Rate FiO2 04/03/16 09:14 96.8 48 18 115/68 94 04/03/16 04:00 97.3 52 18 113/56 94 04/03/16 00:00 97.7 58 18 137/60 97 04/02/16 22:00 60 04/02/16 20:00 97.5 55 18 146/63 96 04/02/16 16:00 97.5 52 20 126/62 96 04/02/16 15:24 20 04/02/16 12:16 18 I/O 04/02/16 04/02/16 04/02/16 04/03/16 04/03/16 04/03/16 07:00 15:00 23:00 07:00 15:00 23:00 Intake Total 600 ml Balance 600 ml Intake Oral 600 ml # Voids 2 7 4 Result Diagram: 03/30/16 0646 04/01/16 0800 Objective Remarks GENERAL: Well-developed well-nourished. In no acute distress. SKIN: Warm and dry. Multiple track parker noted in the upper extremities. HEENT: Normocephalic. Pupils equal and round. Mucous membranes pink and moist. CARDIOVASCULAR: Regular rate and rhythm. No murmur appreciated. RESPIRATORY: No accessory muscle use. Clear to auscultation. Breath sounds equal bilaterally. GASTROINTESTINAL: Abdomen soft, non-tender, nondistended. Bowel sounds x4. MUSCULOSKELETAL: Right upper medial arm with ~7-8cm surgical incision, serosanguineous fluid collected on dressing, no drainage or erythema noted. No clubbing or cyanosis. Improved swelling. NEUROLOGICAL: Awake and alert. No focal neurological deficits. Moves upper and lower extremities spontaneously. Normal speech. PSYCHIATRIC: Appropriate mood and affect; insight and judgment normal. Procedures I and D arm abscess A/P Problem List: (1) Sepsis ICD Code: A41.9 Status: Acute (2) Abscess ICD Code: L02.91 Status: Acute (3) IVDU (intravenous drug user) ICD Code: F19.90 Status: Acute (4) Heroin overdose ICD Code: T40.1X1A Status: Acute (5) Tobacco abuse ICD Code: Z72.0 Status: Acute Assessment and Plan 35-year-old male w/ a PMH of IVDU, Bipolar Disorder, Depression and Tobacco Abuse who was brought to the ED as a Nelson Lawson following Heroin Overdose Sepsis: WBC 15, Temp 99.8 rectal, HR 141, Source-RUE Abscess. Blood Cultures with NGTD. Ct Bactrim and cipro dc IV vancomycin and cefepime. RUE Abscess: Upper summary CT showed complex fluid collection along the inner aspect of the arm between the biceps and triceps muscles adjacent to the brachial artery. Gen./vascular surgery, Dr. Patterson consulted, performed I&D in the OR 03/29. IV Toradol and add oxycodone as needed for pain, IV morphine prior to dressing. Wound care recommendations per surgery. IVDU: h/o IVDU w/ Heroin, Xanax, Fentanyl. Brought to ER w/ Heroin OD, s/p Narcan. Also with episode during admission of injecting Dilaudid, s/p Narcan with improvement. Narcan as needed. Ativan prn for withdrawal. Caution with narcotics. Started methadone 30 mg daily for now while admitted, pain not controlled, D/W pharmacy, increased to 20mg BID. Will need to follow up with methadone clinic. Heroin OD: As above, will monitor, Ativan prn. Sitter. Bradycardia hx: Likely contributed by methadone. Monitor on telemetry. Caution with pain control. Asymptomatic. EKG Tobacco Abuse: Counselled. Ativan prn. DVT Prophylaxis: SCD/Teds. GI Prophylaxis: Protonix Problem Qualifiers (1) Sepsis: Qualified Code: A41.9 - Sepsis, due to unspecified organism (2) Heroin overdose: Qualified Code: T40.1X1A - Heroin overdose, accidental or unintentional, initial encounter Cristian Duke MD Apr 03, 2016 11:38
[2016-04-03 12:12] VITALS: BP 123/58; PULSE 56; RESP 18; TEMP 96.8; O2SAT 94
--- NOTE | 2016-04-03 14:43 | HHI.DS ---
Discharge Summary Admission Date Mar 28, 2016 at 18:41 Discharge Date: Apr 03, 2016 Admitting Diagnosis arm abscess, IV drug abuser (1) Sepsis ICD Code: A41.9 Diagnosis: Principal (2) Abscess ICD Code: L02.91 Diagnosis: Principal (3) IVDU (intravenous drug user) ICD Code: F19.90 Diagnosis: Principal (4) Heroin overdose ICD Code: T40.1X1A Diagnosis: Principal (5) Tobacco abuse ICD Code: Z72.0 Diagnosis: Secondary Procedures I and D arm abscess Brief History - From Admission Real Name: Jasbir Rios 78 ([id number]) This is a 35-year-old male w/ a PMH of IVDU, Bipolar Disorder, Depression and Tobacco Abuse who was brought to the ER as a Nelson Lawson following Heroin Overdose. Previously admitted earlier today for RUE Abscess, however he left AMA, returns now following Heroin OD, s/p Narcan 1mg upon arrival to ER. Currently awake, alert, oriented x4 and pleasant. Labs from previous visit w/ WBC 15.1, Chemistry essentially unremarkable. Currently, Lactic Acid 2.3. S/p Vanc/Clinda in ER. Dr. Patterson consulted by ER physician for eval of RUE Abscess, plan is to continue w/ IV Abx and monitor for possible surgical intervention. CBC/BMP: 03/30/16 0646 04/01/16 0800 Imaging Last Impressions Upper Extremity CT 03/28/16 0000 Signed Impressions: Service Date/Time: Monday, March 28, 2016 17:17 - CONCLUSION: 1. Complex, mildly rim enhancing fluid collection along the inner aspect of the arm as above between the biceps and triceps muscles adjacent to the brachial artery most characteristic of an early abscess with surrounding cellulitis. No evidence for osteomyelitis. Ace Pozo MD PE at Discharge GENERAL: Well-developed well-nourished. In no acute distress. SKIN: Warm and dry. Multiple track parker noted in the upper extremities. HEENT: Normocephalic. Pupils equal and round. Mucous membranes pink and moist. CARDIOVASCULAR: Regular rate and rhythm. No murmur appreciated. RESPIRATORY: No accessory muscle use. Clear to auscultation. Breath sounds equal bilaterally. GASTROINTESTINAL: Abdomen soft, non-tender, nondistended. Bowel sounds x4. MUSCULOSKELETAL: Right upper medial arm with ~7-8cm surgical incision, serosanguineous fluid collected on dressing, no drainage or erythema noted. No clubbing or cyanosis. Improved swelling. NEUROLOGICAL: Awake and alert. No focal neurological deficits. Moves upper and lower extremities spontaneously. Normal speech. PSYCHIATRIC: Appropriate mood and affect; insight and judgment normal. Hospital Course 35-year-old male w/ a PMH of IVDU, Bipolar Disorder, Depression and Tobacco Abuse who was brought to the ED as a Nelson Lawson following Heroin Overdose Sepsis: WBC 15, Temp 99.8 rectal, HR 141, Source-RUE Abscess. Blood Cultures with NGTD. Ct Bactrim and cipro dc IV vancomycin and cefepime. RUE Abscess: Upper summary CT showed complex fluid collection along the inner aspect of the arm between the biceps and triceps muscles adjacent to the brachial artery. Gen./vascular surgery, Dr. Patterson consulted, performed I&D in the OR 03/29. IV Toradol and add oxycodone as needed for pain, IV morphine prior to dressing. Wound care recommendations per surgery. IVDU: h/o IVDU w/ Heroin, Xanax, Fentanyl. Brought to ER w/ Heroin OD, s/p Narcan. Also with episode during admission of injecting Dilaudid, s/p Narcan with improvement. Narcan as needed. Ativan prn for withdrawal. Caution with narcotics. Started methadone 30 mg daily for now while admitted, pain not controlled, D/W pharmacy, increased to 20mg BID. Will need to follow up with methadone clinic. Heroin OD: As above, will monitor, Ativan prn. Sitter. Bradycardia hx: Likely contributed by methadone. Monitor on telemetry. Caution with pain control. Asymptomatic. EKG Tobacco Abuse: Counselled. Ativan prn. DVT Prophylaxis: SCD/Teds. GI Prophylaxis: Protonix Pt Condition on Discharge: Stable Discharge Disposition: Discharge Home Discharge Time: <= 30 minutes Discharge Instructions DIET: Follow Instructions for: As Tolerated, No Restrictions Activities you can perform: Regular-No Restrictions Activities to Avoid: Driving Follow up Referrals: PCP Follow-up - 1 Week Surgical - 1 Week New Medications: Ibuprofen (Ibuprofen) 800 Mg Tab 800 MG PO QID Arthritis Pain #30 Ref 0 TAB Ciprofloxacin (Cipro) 500 Mg Tab 500 MG PO Q12HR Infection #10 TAB Sulfamethoxazole-Trimethoprim (Bactrim DS) 800-160 Mg Tab 1 TAB PO Q12HR Infection #10 TAB Cristian Duke MD Apr 03, 2016 14:43
[2016-04-03] MEDS: MORPHINE SULFATE 4 MG/ML INJ IV PUSH PRN (14:55)
--- NOTE | 2016-04-08 12:15 | MP ---
cc: GIN VÁZQUEZ MD DATE OF SURGERY 03/30/2016 NOTE I have dictated this once already on March 30 I do not know where it went. PREOPERATIVE DIAGNOSIS Abscess of the right upper arm. IV drug abuser. POSTOPERATIVE DIAGNOSIS Abscess of the right upper arm. IV drug abuser. OPERATIVE PROCEDURE I&D of a large abscess of the right upper arm. SURGEON MD Leonardo ANESTHESIA General. ESTIMATED BLOOD LOSS 15 cc. PROCEDURE The patient was prepped and draped in the usual fashion after induction of anesthesia. There is a large abscess on the medial aspect of the right upper arm measuring about 7-8 cm in diameter. The skin is incised over the abscess and then through the medial biceps muscle area into the abscess making sure that brachial artery stays below this level. About 70 cc of purulent material is drained and this is cultured. The area is irrigated with copious amounts of saline and debrided, meticulous hemostasis obtained and then packed with Iodoform packing and dressing applied. The patient tolerated the procedure well. Gin CABRERA/TOMASA /8:41 PM /11:56 AM
== END 2016-04-03 16:05 | disposition home or self-care (01) | DRG 987 ==
LOC: NEPC 16:36 → NEDA 18:41 → EDBD 18:41 → OBSVTOIN 18:41 → NEPGCP 22:25 → N04B 03-29 13:44 → N05B 03-29 15:59
PROVIDERS: ADMIT Internal Medicine; ATTEND Internal Medicine
PROC: 0K970ZX Drainage of Right Upper Arm Muscle, Open Approach, Diagnostic (ICD-10-PCS; principal; 2016-03-29 12:49)
DX: T40.1X1A Poisoning by heroin, accidental (unintentional), initial encounter (principal); A41.9 Sepsis, unspecified organism; L02.413 Cutaneous abscess of right upper limb; Z72.0 Tobacco use; F19.10 Other psychoactive substance abuse, uncomplicated; R00.1 Bradycardia, unspecified; F17.210 Nicotine dependence, cigarettes, uncomplicated; G89.29 Other chronic pain; M54.9 Dorsalgia, unspecified
CPT/HCPCS: 36011; 73201; 80048; 80053; 80202; 82565; 83605; 83735; 85025; 87015; 87040; 87070; 87102; 87116; 87205; 87206; 93005; 96361; 96365; 96375; J0692; J1885; J2060; J2250; J2270; J2310; J2405; J3010; J3370; J7030; J7040; Q9967